=== PATIENT | female | born 1985 | race African-American/Black ===

== ENCOUNTER 2019-07-30 18:59 | Emergency (ER) | payer OTHER ==
[~2019-07-30] VITALS: Ht 170.2 cm; Wt 108.9 kg
[2019-07-30] MEDS ORDERED: MEDROLDOSEPACK PO (20:27)
[2019-07-30] MEDS ORDERED: NORCO 5-325 TA1 EAC1 PO (20:27)
[2019-07-30] MEDS ORDERED: LIDOCAINE PAIN1 EACH TRANSDERM (20:27)
[2019-07-30 20:55] VITALS: BP 120/69
== END 2019-07-30 20:55 | disposition home or self-care (01) ==
LOC: ER 18:59
DX: M54.5 Low back pain (principal)